=== PATIENT | female | born 1975 | race Native Hawaiian/Other Pacific Islander ===

== ENCOUNTER 2018-03-01 02:35 | Emergency (ER) | payer SELFPAY ==
[2018-03-01 03:09] VITALS: TEMP 98.1
--- NOTE | 2018-03-01 03:24 | ED PDOC ---
Arrival/HPI - General Chief Complaint: GI Problem Time Seen by Provider: 03/01/18 03:14 Historian: Patient - History of Present Illness Narrative History of Present Illness (Text): 03/01/18 03:22 Sapphire Razo is a 43 year old female, whose past medical history includes uterine fibroids and hypertension, who presents to the Emergency department complaining of vaginal bleeding. Patient states she has been experiencing intermittent vaginal bleeding, secondary to her fibroids, for the past 4 months. Patient states she was seen and evaluated by her lead mechanical engineer for the same issue, prescribed Provera to help with the bleeding, and told the bleeding was "stable" and would not require D&C. Patient states she is still experiencing bleeding despite taking the Provera. Patient also notes some blood in her diarrhea earlier this evening. Patient denies any abdominal pain, urinary symptoms, back pain, neck pain, headache, dizziness, or any other complaints. Time/Duration: < month Symptom Onset: Gradual Symptom Course: Unchanged Activities at Onset: Light Context: Home Past Medical History - Provider Review Nursing Documentation Reviewed: Yes - Cardiac Hx Hypertension: Yes - Psychiatric Hx Substance Use: No Family/Social History - Physician Review Nursing Documentation Reviewed: Yes Family/Social History: Unknown Family HX Smoking Status: Never Smoked Hx Alcohol Use: No Hx Substance Use: No Allergies/Home Meds Allergies/Adverse Reactions: Allergies No Known Allergies Allergy (Verified 03/01/18 03:09) Home Medications: Home Meds Medication Instructions Recorded Confirmed Ferrous Sulfate [Feosol] 325 mg PO DAILY 03/01/18 03/01/18 Irbesartan 325 mg PO DAILY 03/01/18 03/01/18 MedroxyPROGESTERone [Provera] 10 mg PO DAILY 03/01/18 03/01/18 hydroCHLOROthiazide [Hydrodiuril] 25 mg PO DAILY 03/01/18 03/01/18 Review of Systems - Physician Review All systems were reviewed & negative as marked: Yes - Review of Systems Constitutional: Normal. absent: Fevers Eyes: Normal ENT: Normal Respiratory: Normal. absent: SOB, Cough Cardiovascular: Normal. absent: Chest Pain Gastrointestinal: Diarrhea, Hematochezia. absent: Abdominal Pain Genitourinary Female: Vaginal Bleeding Musculoskeletal: Normal. absent: Back Pain, Neck Pain Skin: Normal. absent: Rash Neurological: Normal. absent: Headache, Dizziness Endocrine: Normal Hemo/Lymphatic: Normal Psychiatric: Normal Physical Exam Vital Signs Reviewed: Yes Vital Signs Temp Pulse Resp BP Pulse Ox 03/01/18 03:05 98.1 F 99 H 17 140/87 99 Temperature: Afebrile Blood Pressure: Normal Pulse: Regular Respiratory Rate: Normal Appearance: Positive for: Well-Appearing, Non-Toxic, Comfortable Pain Distress: None Mental Status: Positive for: Alert and Oriented X 3 - Systems Exam Head: Present: Atraumatic, Normocephalic Pupils: Present: PERRL Extroacular Muscles: Present: EOMI Conjunctiva: Present: Normal Mouth: Present: Moist Mucous Membranes Neck: Present: Normal Range of Motion Respiratory/Chest: Present: Clear to Auscultation, Good Air Exchange. No: Respiratory Distress, Accessory Muscle Use Cardiovascular: Present: Regular Rate and Rhythm, Normal S1, S2. No: Murmurs Abdomen: No: Tenderness, Distention, Peritoneal Signs Rectal: Present: Normal Rectal Tone. No: Rectal Tenderness, Gross Blood, Other (No rectal bleeding noted on digital exam) Genitourinary/Pelvic Exam: Present: Normal External Genitalia, Vaginal Bleeding (small amount blood vaginal introitus), Other (MITCH Hunter present as classifier) Back: Present: Normal Inspection Upper Extremity: Present: Normal Inspection. No: Cyanosis, Edema Lower Extremity: Present: Normal Inspection. No: Edema Neurological: Present: GCS=15, CN II-XII Intact, Speech Normal Skin: Present: Warm, Dry, Normal Color. No: Rashes Psychiatric: Present: Alert, Oriented x 3, Normal Insight, Normal Concentration Medical Decision Making ED Course and Treatment: 03/01/18 03:22 Impression: 43 year old female complaining of vaginal bleeding. Plan: -- Labs, Beta-HCG, blood type and screen -- IV fluids -- Reassess and disposition Progress Notes: - Scribe Statement The provider has reviewed the documentation as recorded by the Mine Lorenzana Provider Scribe Attestation: All medical record entries made by the Scribe were at my direction and personally dictated by me. I have reviewed the chart and agree that the record accurately reflects my personal performance of the history, physical exam, medical decision making, and the department course for this patient. I have also personally directed, reviewed, and agree with the discharge instructions and disposition. Disposition/Present on Arrival - Present on Arrival Any Indicators Present on Arrival: No History of DVT/PE: No History of Uncontrolled Diabetes: No Urinary Catheter: No History of Decub. Ulcer: No History Surgical Site Infection Following: None - Disposition Have Diagnosis and Disposition been Completed?: Yes Diagnosis: DUB (dysfunctional uterine bleeding), Uterine fibroid Disposition: HOME/ ROUTINE Disposition Time: 05:49 Patient Plan: Discharge Patient Problems: Current Active Problems Problem Status Onset DUB (dysfunctional uterine bleeding) Acute Uterine fibroid Acute Condition: GOOD Discharge Instructions (ExitCare): Uterine Fibroids (DC), Heavy Periods (DC) Additional Instructions: Follow up with your lead mechanical engineer this week Forms: [facility] (Montenegrin)
[2018-03-01] MEDS ORDERED: Sodium Chloride 0.9% 1,000 ML IV SCH (03:30)
[2018-03-01 04:21] LABS: HEMOGLOBIN 10.7 g/dL (12.0-16.0); MEAN CELL VOLUME 83.5 fl (80.0-105.0); MEAN CORPUSCULAR HEMOGLOBIN 26.8 pg (25.0-35.0); MEAN PLATELET VOLUME 9.7 fl (7.0-11.0); RED CELL DISTRIBUTION WIDTH 12.9 % (11.5-14.5); WHITE BLOOD COUNT 12.6 10^3/uL (4.5-11.0)
[2018-03-01 04:26] LABS: INR 1.01; PARTIAL THROMBOPLASTIN TIME 28.4 Seconds (25.1-36.5); PROTHROMBIN TIME 11.5 SECONDS (9.4-12.5)
[2018-03-01 04:27] LABS: ALB/GLOB RATIO 1.2 (1.1-1.8); ALBUMIN 3.8 g/dL (3.0-4.8); ALT/SGPT 19 U/L (7-56); AST/SGOT 39 U/L (14-36); BLOOD UREA NITROGEN 16 mg/dL (7-21); CALCIUM 8.7 mg/dL (8.4-10.5); GFR NON-AFRICAN AMERICAN > 60
[2018-03-01] MEDS ORDERED: Potassium Chloride 20 mEq ER Tab PO STA (05:06)
[2018-03-01 06:06] VITALS: BP 142/87; PULSE 80; RESP 18; O2SAT 98
== END 2018-03-01 06:07 | disposition home or self-care (01) ==
LOC: ED 02:35
DX: D25.9 Leiomyoma of uterus, unspecified (principal); N93.8 Other specified abnormal uterine and vaginal bleeding; I10 Essential (primary) hypertension
CPT/HCPCS: 80053; 84702; 85027; 85610; 85730; 86850; 86900; 99283; J7030